=== PATIENT | male | born 1985 | race American Indian/Alaskan Native ===

== ENCOUNTER 2024-11-18 09:42 | Emergency (ER) | payer MEDICAID, SELFPAY ==
[2024-11-18 09:43] VITALS: BMI 31.5
[2024-11-18 09:51] VITALS: BP 141/77; PULSE 79; RESP 16; TEMP 36.8; O2SAT 98
--- NOTE | 2024-11-18 10:09 | XR_ITS ---
Examination: Knee, left , 3 views Technique: Knee AP, lateral, oblique 3 views Date and time of exam: November 18, 2024 1018 hrs. Indications: Injury to the knee 2 days ago, knee pain. Findings: No acute fracture Moderate knee effusion No dislocation Impression: No acute fracture
--- NOTE | 2024-11-18 11:11 | EDNOTE_ITS ---
ED Back Injury Pain RME/HPI General Chief Complaint: Back Pain/Injury Stated Complaint: L KNEE INJURY X2 DAYS Time Seen by Provider: 11/18/24 10:02 Arrival date/time: 11/18/24 09:42 39-year-old male presents emergency department today stating was doing yard work 2 days ago and injured his left knee patient reports he heard a popping sensation to the left knee since that he had pain Limitations: no limitations Related Data Previous Rx's ?Medication ?Instructions ?Recorded ibuprofen 800 mg tablet 800 mg PO TID PRN pain #30 t abs 11/18/24 Allergies Allergy/AdvReac Type Severity Reaction Status Date / Time No Known Allergies Allergy Verified 11/18/24 09:42 Review of Systems Review of Systems Systems Reviewed: All systems reviewed, normal except as documented Constitutional Constitutional: Reports system reviewed and no additional complaints, except as documented, Denies fever(s) and Denies headache(s) Eyes Eyes: Reports system reviewed and no additional complaints, except as documented and Denies blurry vision ENT Ears, Nose, Mouth, and Throat: Reports system reviewed and no additional complaints, except as documented, Denies headache(s), Denies nasal congestion and Denies nasal discharge Cardiovascular Cardiovascular: Reports system reviewed and no additional complaints, except as documented, Denies chest pain and Denies dyspnea Respiratory Respiratory: Reports system reviewed and no additional complaints, except as documented, Denies chest congestion, Denies cough and Denies dyspnea Gastrointestinal Gastrointestinal: Reports system reviewed and no additional complaints, except as documented and Denies abdominal pain Musculoskeletal Musculoskeletal: Reports system reviewed and no additional complaints, except as documented, Reports arthralgias, Denies deformity and Denies joint swelling Integumentary/Breasts Skin/Breast: Reports system reviewed and no additional complaints, except as documented and Denies rash Neurologic Neurologic: Reports system reviewed and no additional complaints, except as documented, Reports as per HPI and Denies headache(s) Past Medical History Social History SMOKING STATUS: Never smoker ED Exam General Limitations: Present no limitations General appearance: Present alert and in no apparent distress Head Head exam: Present atraumatic Eye Eye exam: Present normal appearance, PERRL and EOMI ENT ENT exam: Present normal exam, normal oropharynx and mucous membranes moist Neck Neck exam: Present normal inspection, full ROM and trachea midline Chest Chest inspection: Present normal inspection and symmetric chest wall rise Respiratory Respiratory exam: Present normal lung sounds bilaterally Cardiovascular Cardiovascular exam: Present regular rate, normal rhythm and normal heart sounds Abdominal Exam Abdominal exam: Present soft and normal bowel sounds Extremities Exam Extremities exam: Present full ROM, tenderness, normal capillary refill and joint swelling Back Exam Back exam: Present normal inspection and full ROM Neurological Exam Neurological exam: Present alert, oriented X3 and CN II-XII intact Psychiatric Psychiatric exam: Present normal affect and normal mood Skin Skin exam: Present warm, dry, intact and normal color Course Quality Measures none Orders Category Date Time Status ronnie wrap [Splint / Immobilizer] STAT Care 11/18/24 11:12 Completed XR knee LT 3V Stat Exams 11/18/24 10:09 Completed Vital Signs Vital signs: Vital Signs Temperature 98.3 F 11/18/24 09:51 Pulse Rate 79 11/18/24 09:51 Respiratory Rate 16 11/18/24 09:51 Blood Pressure 141/77 H 11/18/24 09:51 Pulse Oximetry (%) 98 11/18/24 09:51 Oxygen Delivery Method Room Air 11/18/24 09:51 O2 saturation 98% room air within normal limits Back Pain / Injury MDM Narrative MDM Narrative:: 39-year-old male presents emergency department today stating was doing yard work 2 days ago and injured his left knee patient reports he heard a popping sensation to the left knee since that he had pain On exam patient has pain and tenderness to the left knee patient does have full range of motion Imaging of left knee obtained no acute fracture dislocation noted Patient placed in Ronnie wrap Patient is ready to follow-up with his PCP and have an outpatient MRI if pain persisted for symptoms worsen return immediately Patient data External records reviewed:: [facility] previous records Clinical information provided by:: patient Social determinants that could affect healthcare access:: none Patient has the following chronic illnesses:: See history How is presenting disease/condition affected by chronic disease/condition?: uneffected by Evaluation data The following diagnostics were reviewed and interpreted by me:: radiology exam(s) Lab and/or radiology exams considered but not ordered:: Radiology obtain Interpretation Summary: Reviewed by me Medications / Prescriptions Medications or Prescriptions considered but not ordered:: Given Medication administrations:: Given Consultations Consultation(s) initiated? (list below): No Diagnosis Differential diagnosis back pain/injury: other Most likely diagnosis given after review of the tests above:: Sprain Admission Indicated Admission indicated?: not indicated Admission Request Was there a request for admission?: No Disposition Plan Disposition Plan: Discharge Discharge Attestation Discharge Attestation: The patient and all family members were given an opportunity to ask questions and understood the discharge instructions. Discharge instructions specifically effects, indications for sooner follow up or return to the emergency department, and the expected course of current diagnosis. Patient condition: Stable Discharge Plan Plan Patient Disposition: HOME (Self Care) Discharge Disposition comment: Stable Prescriptions/Referrals Prescriptions/Med Rec: New ibuprofen 800 mg tablet 800 mg PO TID PRN (Reason: pain) Qty: 30 0RF Referrals: Devang Bonds PA-C [Primary Care Provider] - In 1 week Problem List Clinical Impression: Left knee sprain Patient/Caregiver Discharge Instructions Education Materials: ED Knee Sprain Additional Instructions: Please follow up with your primary care doctor in the next 24-48hrs for any worsening symptoms return here immediately Print Language: Pashto Stand Alone Forms: Radha Award Info., Patient Portal Info Letter IZZY/AMITA Supervising Physician IZZY/AMITA Supervising Physician: Dr. arnett
== END 2024-11-18 11:35 | disposition home or self-care (01) ==
PROVIDERS: Emergency Provider Family Medicine; PCP Physician Assistant
DX: S83.92XA Sprain of unspecified site of left knee, initial encounter (principal); X58.XXXA Exposure to other specified factors, initial encounter; Y93.H2 Activity, gardening and landscaping
CPT/HCPCS: 73562; 99283